=== PATIENT | male | born 1960 | race Caucasian/White ===

== ENCOUNTER 2024-07-10 09:58 | Emergency (ER) | payer SELFPAY ==
[2024-07-10] VITALS (10 sets, daily range): BP systolic 53–177; BP diastolic 36–101; PULSE 0–132; RESP 0–21; TEMP 36.2; BMI 19.5
--- NOTE | 2024-07-10 10:13 | EKG12_ITS ---
Test Reason : Blood Pressure : */* mmHG Vent. Rate : 78 BPM Atrial Rate : 78 BPM P-R Int : 126 ms QRS Dur : 138 ms QT Int : 428 ms P-R-T Axes : -46 88 69 degrees QTcB Int : 487 ms Atrial fibrillation Right bundle branch block Abnormal ECG Confirmed by Duke Ceron ([id number]), news assignment editor DAVID LOMELI ([id number]) on 07/14/2024 11:36:18 AM Referred By: Confirmed By: Duke Ceron
[2024-07-10 10:29] LABS: Bedside Glucose > 500 mg/dL (74-106)
[2024-07-10] MEDS: 0.9% Normal Saline (1000mL) 1,000 ML 999 ML IV (10:29)
[2024-07-10] MEDS: Amiodarone 360 MG in Dextrose 5% Viaflo Bag 192.8 ML 33.3 MG CONT INF (10:29)
--- NOTE | 2024-07-10 10:32 | EKG12_ITS ---
Test Reason : Blood Pressure : */* mmHG Vent. Rate : 85 BPM Atrial Rate : 85 BPM P-R Int : 102 ms QRS Dur : 136 ms QT Int : 436 ms P-R-T Axes : 57 90 -72 degrees QTcB Int : 518 ms Sinus rhythm with short WA Right bundle branch block T wave abnormality, consider inferolateral ischemia Abnormal ECG Confirmed by Duke Ceron ([id number]), web content editor DAVID LOMELI ([id number]) on 07/14/2024 11:35:54 AM Referred By: Confirmed By: Duke Ceron
--- NOTE | 2024-07-10 10:49 | EKG12_ITS ---
Test Reason : CODE Blood Pressure : */* mmHG Vent. Rate : 111 BPM Atrial Rate : * BPM P-R Int : * ms QRS Dur : 118 ms QT Int : 314 ms P-R-T Axes : * 97 75 degrees QTcB Int : 427 ms Atrial fibrillation with rapid ventricular response Rightward axis Low voltage QRS Non-specific intra-ventricular conduction delay Abnormal ECG Confirmed by Duke Ceron ([id number]), slot editor DAVID LOMELI ([id number]) on 07/14/2024 11:36:35 AM Referred By: Confirmed By: Duke Ceron
[2024-07-10 11:11] LABS: Base Excess -12 mmol/L (-2 to +2); Bicarbonate 17.3 mmol/L (22-26); Blood Gas Specimen Type ART; Mode AC; O2 Delivery Device Adult Vent; PEEP 5; PO2 290 mmHG (75-100); RR 14; SITE R Fem; SO2 100 % (95-99); Total Carbon Dioxide 19 mmol/L; pCO2 50.1 mmHg (35-45); pH 7.15 (7.35-7.45)
--- NOTE | 2024-07-10 11:13 | EX.ED.CRITCA ---
HPI History of Present Illness Chief Complaint: Cardiac Arrest EXAM Physical Exam Const Vital Signs: 07/10/24 10:01 07/10/24 10:41 07/10/24 10:45 Respiratory Rate 14 Blood Pressure 177/101 H 67/46 L Blood Pressure Mean 121 53 Fraction of Inspired Oxygen (FIO2) 100 MDM MDM Lab Data Labs: Laboratory Results - last 24 hr 07/10/24 10:10 POC Glucose > 500 H* ABG Data ABG results: ABG 07/10/24 11:06 Specimen Type ART Sample Site R Fem pH 7.15 L* Bicarbonate Actual 17.3 L Total CO2 19 Base Excess -12 L O2 Saturation 100 H O2 % 100.0 ABG pCO2 50.1 H ABG pO2 290 H Respiration Rate 14 O2 Delivery Device Adult Vent Vent Mode AC Tidal Volume 450.0 POC PEEP 5 Crit Call To/Read Back Yes Discharge Plan Triage Chief Complaint: Cardiac Arrest ED Provider: Dontae Enamorado Dx/Rx/DC Orders Primary Care Provider: Care Physician,No Primary Referrals: Care Physician,No Primary [Primary Care Provider] - Print Language: Singaporean
--- NOTE | 2024-07-10 13:03 | CM.ED ---
Social work Reason for referral: code blue This SW arrived for shift and was met by TCU MCKAY Stone who presented to [facility] ED when a code blue was called (due to this SW's shift not starting until a few minutes after the code blue was called). This SW helped MCKAY Stnoe with providing support and information to patient's family as nursing attended to patient. This SW verified with ED director Shawna that patient's mother was to make medical decisions for patient rather than patient's adult son who was also present; Shawna confirmed. See MCKAY Bertha's documentation for further information. When MCKAY Stone returned to TCU, this SW provided further support to patient's mother, Brenda, as well as patient's son Franky, brothers, ex-, and sister in law. Per Brenda, patient had reportedly stated not feeling well over the last few days and Brenda stated patient had been living with Brenda over the last few months while patient was building a new home for patient. Brenda stated patient awoke early this morning and had fallen; when patient made it back to patient's bed, Brenda reported sitting in the chair next to patient's bedside prior to patient needing to present to [facility] ED. Active listening and empathic support provided as necessary to patient's family members. Patient's family members present in waiting room and asked if there were further needs at this time due to patient's mother desiring to go home. This SW verified with billiard table mechanic Alyssa who stated patient's family could leave [facility] if they would like; family updated with this information. Emily Arzate, GROUP LEADER SEMICONDUCTOR TESTING, WEDDING DAY COORDINATOR
--- NOTE | 2024-07-10 13:08 | ED.RN ---
pts mother requsted that CPR be stopped at [address] harley called the original time of . family left the room and staff noted that pt had a heart beat. pt was oxygenated until dr harley finished talking to the family- family wishes to terminally extubate the patient. pt extubated at 1120 and became asystole at 1141 which is when time of was noted by dr harley. family at bedside with this RN and social work.
--- NOTE | 2024-07-10 14:01 | CM.ED ---
Addendum entered by Bertha Almanza 07/10/24 14:41: For clarification, son's stated preference was for CPR to be stopped and comfort measure started. Original Note: Social Work SW responded to [facility] 5 mins to ED at approximately 0950. Pt arrived via EMS with active CPR. Mother presented via car behind EMS to waiting room. SW introduced self and role. Inquired further about events, exploring any known medical history, alcohol/tobacco/drugs, known medications or allergies, and explored personal history. Mother, Brenda, reported pt does not have a PCP, does not receive any medical care, not taking any medications, no known drug use, but is an alcoholic though mother denied known current use. pt has been living with mother for the last 2-3 months as pt is building a house. Pt's divorce was finalized in May 2024 after being for 41 years. Pt has one son, Franky and two brothers, Brandin and Ryley. 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 Son was scheduled to fly to [place] for business this evening; lives in [place], and has been notified of pt's condition. Mother states pt and son do not see each other though, and do not have a good relationship. Mother reports pt has not been eating the last 2-3 months and has lost a significant amount of weight. Mother states pt became very weak this morning, starting about 0200, and had fallen 3 times, when the final time she could not get him up, despite him being skin and bones and called 911. SW inquired if pt had any formal advance directives; mother denied. SW inquired if mother knew of pt's wishes with medical care; mother denied, but pt has never seen a Dr or received medical treatment. SW provided much support as mother was very emotional. Mother pacing around waiting room and wanting to wait outside for other family members to arrive. SW offered to check with pt and staff on pt's condition. SW reported known information from mother to Dr. - Shortly after, pt's other family members arrived: son, Franky and brother Brandin. SW provided known updates to family upon arrival and continued updates between checks with pt/DR/IDT. SW inquired to Franky about any known medical history. Son confirmed pt has not seen a Dr or been in a hospital ever, no known drug use; pt has been an alcoholic for 25 years, and pt/son have not seen or spoken to each other in over a year. MCKAY continued to provide ongoing emotional support and medical updates on pt's condition to family. After about 40 minutes of arrival in ED, pt's condition did not stabilize between several rounds of CPR. requested family's decision to continue with CPR/treatment and agreed to have family see pt in the room. MCKAY spoke with family, explained pt's current condition and events leading up. Explained Dr is requesting family decision on further treatment. MCKAY conferred with Director of ED who was present and mother would legally make the healthcare decisions, since pt is legally . agreed to allow family to see pt to assist in making the decision. Mother and son agreed to see pt in room. Mother entered room with this worker and son. Mother hysterical and distraught with emotions. inquired again about continued treatment as staff are actively administering CPR. This worker consoled mother. Son consoled mother and encouraged mother to make the decision for what is best for the pt, noting per , pt has been receiving CPR for over an hour and pt's prognosis is poor. Mother remained emotionally hysterical. SW remained with mother and son. Assisted Dr in obtaining an answer from mother, questioning mother for a decision on pt continuing to receive CPR or to stop. Mother remained emotional but clearly voiced to stop. SW repeated to staff for clarity to stop CPR. Staff stopped treatment. pronounced pt . Mother embraced this worker, very emotional. MCKAY provided ongoing support to mother and son. Escorted both out of room to allow staff to finalize needs for pt. The remaining family members provided support to mother. Ex- arrived as well. MCKAY offered condolences to all family members. Provided ongoing support. - MCKAY returned to pt's room for update on family returning to pt's bedside. noted pt regained a pulse and cardiac activity. Requested family return to official waiting room and will speak with family on treatment moving forward. MCKAY assisted in escorting family back to waiting room and explained Dr will be speaking with family to provide further detailed information. spoke with family and provided update on pt's regained pulse and heart beat, though weak. answered family's questions and provided information on events. questioned mother if she wants pt to continue with treatment or to provide hospice/comfort care to allow pt to naturally. answered family's questions on pt likely having poor quality of life, poor prognosis, unsure of brain activity and would likely need [facility] care for the rest of his life. Mother became increasingly emotional with difficulty making a decision. kindly probed mother for answer. Family provided their input and encouragement to mother to make a decision, noting pt would not want extreme medical care as he has not pursued medical care up until this point. Mother having much difficulty and very emotional. MCKAY offered that mother can default the decision to pt's son, if she feel she cannot make the decision. Franky agreed to make the decision. Pt's siblings and ex- present also encouraged mother to have Franky make the decision. Mother ultimately decided to not pursue any treatment and for pt to have comfort care. repeated back decision for comfort measures and mother confirmed. noted. MCKAY provided ongoing emotional support to mother and family. SW assisted mother in seeing pt at bedside once Dr cleared for visitors. Son spoke with this worker aside and shared the pt has not seen or talked to his siblings in about ten years. Son shared additional family dynamics and the difficulty in the current situation with the present family members. SW provided supportive listening and thanked son for providing further insight. SW inquired if son had anyone to call for his support. Son stated he spoke with his , but she is caring for their children and they have not met the pt, thus they will not be visiting. Son denied any self concerns but appreciative of SW support. - MCKAY handed off to ED SW to continue with family support. Time spent: 2 hours Bertha Almanza MSW DIRECTOR HUMAN SERVICES
--- NOTE | 2024-07-10 16:14 | EDS_ITS ---
HPI History of Present Illness Chief Complaint: Cardiac Arrest Narrative Narrative: Chief complaint and HPI: Cardiopulmonary arrest. History taken by EMS due to patient's critical condition. 64-year-old male with unknown past medical history but possible drug abuse presents in cardiopulmonary arrest. EMS was called to the house for loss of balance and dizziness. On their arrival they found the patient slumped over the bathtub. En route, patient entered cardiopulmonary arrest with asystole and then PEA. Was given epi x 2 and Narcan x 1 prior to arrival. On presentation, patient in cardiopulmonary arrest. I-gel placed with bag mask. David device. No spontaneous breathing or movement. Review of systems: Unable to be obtained Medications: As listed on the chart Allergies: As listed on the chart PFSH: Per chart Vital signs: As listed on the chart Physical exam: Gen: Unresponsive Head: Normocephalic, atraumatic Eyes: Fixed, dilated, unreactive CV: Pulseless, CPR in progress with David device Resp: No spontaneous breathing, being bagged masked with igel GI: Cachectic, abd soft, non-distended Musc: No spontaneous movement, unresponsive Skin: Cold, pale Neuro: Unresponsive PFSH PFSH Medical History no medical history Allergy/AdvReac Type Severity Reaction Status Date / Time Unable to Assess Allergy Verified 07/10/24 13:20 Social History Smoking Status: Unknown if ever smoked EXAM Physical Exam Const Vital Signs: 07/10/24 09:59 07/10/24 09:59 07/10/24 10:01 Temperature 97.2 F L Temperature Source Temporal Pulse Rate Pulse Rate [6] 132 H Respiratory Rate 14 Blood Pressure Blood Pressure [6] 123/69 H Blood Pressure Mean Oxygen Delivery Method Ambu-Bag Fraction of Inspired Oxygen (FIO2) 100 07/10/24 10:41 07/10/24 10:45 07/10/24 10:48 Temperature Temperature Source Pulse Rate 85 Pulse Rate [6] Respiratory Rate 14 Blood Pressure 177/101 H 67/46 L Blood Pressure [6] Blood Pressure Mean 121 53 Oxygen Delivery Method Fraction of Inspired Oxygen (FIO2) 07/10/24 10:53 07/10/24 11:00 07/10/24 11:15 Temperature Temperature Source Pulse Rate 86 95 Pulse Rate [6] Respiratory Rate 21 H 0 L Blood Pressure 53/36 L 64/37 L Blood Pressure [6] Blood Pressure Mean 44 47 Oxygen Delivery Method Fraction of Inspired Oxygen (FIO2) 07/10/24 11:30 07/10/24 11:45 Temperature Temperature Source Pulse Rate 84 0 L Pulse Rate [6] Respiratory Rate 6 L 13 Blood Pressure Blood Pressure [6] Blood Pressure Mean Oxygen Delivery Method Fraction of Inspired Oxygen (FIO2) MDM MDM MDM Narrative Medical decision making narrative: 64-year-old male with unknown past medical history but possible drug abuse presents in cardiopulmonary arrest. EMS was called to the house for loss of balance and dizziness. On their arrival they found the patient slumped over the bathtub. En route, patient entered cardiopulmonary arrest with asystole and then PEA. Was given epi x 2 and Narcan x 1 prior to arrival. On arrival, patient is still in cardiopulmonary arrest. It was confirmed by EMS that patient is full code per his mother. ACLS was continued. Given concern for possible drug abuse, Narcan was given and pulse check was obtained. Patient was in PEA. Epinephrine given. Patient was intubated during active CPR. Patient received several rounds of epinephrine in which he entered into ventricular tachycardia. He received a shock at 200 J and CPR initiated. He was given 300 mg of amiodarone. We obtained ROSC. EKG showed atrial fibrillation with RVR. Heart rate 111. No ST elevation. Patient was placed on amnio drip and extensive laboratory workup ordered. CTA head and CTA chest ordered for possible PE as a source of his cardiopulmonary arrest. Differential diagnosis broad including ACS, PE, electrolyte abnormality, sepsis, CJ, substance abuse. Mays catheter and OG placed. Blood sugar high on monitor. No history of diabetes reported. I received information from social work that patient is not a known drug abuser but instead a known alcoholic. Does not go to the doctor. Has had decreased p.o. intake. This was reported by family. While stabilizing the patient, patient lost pulse and CPR was immediately started. ACLS protocol initiated. Patient received epinephrine, calcium chloride, bicarbonate. Patient in PEA. Bedside ultrasound performed, no pericardial effusion. Obtained ROSC with EKG showing atrial rhythm with right bundle branch block. Heart rate 78. Patient quickly lost pulse and again CPR/ACLS protocol initiated. At this point, family was brought in the room. Despite more epinephrine and bicarbonate, patient remained in PEA. Family at bedside would like to withdraw care. There was no pulse on palpation or Doppler ultrasound. Time of declared at 1039. As we were about to withdraw IV fluids/medications patient had ROSC. Treatment was immediately restarted. Patient hypotensive, fluids still running. Levophed started. Patient has obtained cardiopulmonary arrest multiple times. He has been intermittently coded for over an hour, patient is in critical care condition with likely poor outcome. Given this information I spoke to the POA, his mother, as well as his family. We had an extensive discussion. All questions were answered. Everyone has decided to withdraw care. Patient was palliatively extubated and all candida atment was stopped. ABG resulted after withdrawal of care. Shows severe metabolic acidosis. Patient showed asystole on the monitor. No spontaneous breathing. No cardiac activity or pulse. Patient pronounced at 1141. Endotracheal Intubation Indication: Cardiopulmonary arrest Consent: Emergent Procedure: The patient was on a cardiac cath technologist. T active CPR with David. Using a glide laryngoscope and a size 7.5 endotracheal tube with stylet, the patient was intubated on the first attempt. The stylet was removed, and the cuff balloon was inflated. Appropriate endotracheal tube position was confirmed by direct visualization of vocal cord passage, fogging of the tube, CO2 colorimetric indicator and symmetric breath sounds. The tube was secured at 23 cm at the lips. 90 minutes of critical care time utilized in managing the patient. This is due to high probability of and deterioration of the patient based on the patient's condition and excludes any separately billable procedures. Impression: 1. /withdrawal of care 2. Recurrent cardiopulmonary arrest 3. Ventricular tachycardia with defibrillation Lab Data Labs: Laboratory Results - last 24 hr 07/10/24 10:10 POC Glucose > 500 H* ABG Data ABG results: ABG 07/10/24 11:06 Specimen Type ART Sample Site R Fem pH 7.15 L* Bicarbonate Actual 17.3 L Total CO2 19 Base Excess -12 L O2 Saturation 100 H O2 % 100.0 ABG pCO2 50.1 H ABG pO2 290 H Respiration Rate 14 O2 Delivery Device Adult Vent Vent Mode AC Tidal Volume 450.0 POC PEEP 5 Crit Call To/Read Back Yes Blood Gas Notified Whom Dr. Cuevas Discharge Plan Triage Chief Complaint: Cardiac Arrest ED Provider: Dontae Enamorado Dx/Rx/DC Orders Primary Care Provider: Care Physician,No Primary Referrals: Care Physician,No Primary [Primary Care Provider] - Print Language: Egyptian Disposition Disposition: Discharge Date/Time: 07/10/24 13:32 Date/Time: 07/10/24 11:41
== END 2024-07-10 13:32 ==
LOC: ED 10:13
PROVIDERS: Emergency Provider Surgery; Visit Provider Surgery
DX: I46.9 Cardiac arrest, cause unspecified (principal); I47.20 Ventricular tachycardia, unspecified; I48.91 Unspecified atrial fibrillation; F10.20 Alcohol dependence, uncomplicated; I45.10 Unspecified right bundle-branch block; R73.9 Hyperglycemia, unspecified; E87.20 Acidosis, unspecified; I95.9 Hypotension, unspecified
CPT/HCPCS: 31500; 36600; 82803; 82962; 92950; 93005; 94002; 96365; 96366; 99284; A4216